=== PATIENT | female | born 1990 | race Caucasian/White ===

== ENCOUNTER 2017-10-30 15:33 | Emergency (ER) | payer MEDICAID, SELFPAY ==
[2017-10-30 15:34] VITALS: BP 146/105; PULSE 115; RESP 19; TEMP 37.1; O2SAT 97; BMI 36.4
[2017-10-30] MEDS: Ondansetron 4 MG/2 ML Vial IV (16:30)
[2017-10-30] MEDS: 0.9% Normal Saline 1,000 ML 1000 ML IV (16:30)
[2017-10-30 17:30] LABS: International Normalized Ratio 1.1; Prothrombin Time (Protime)PT. 14.1 SECONDS (11.7-14.9)
[2017-10-30 17:31] LABS: Partial Thromboplast Time 30.6 Seconds (24.1-36.2)
[2017-10-30 17:36] LABS: Anion Gap 8 (5-15); BUN 10 mg/dL (7-18); BUN/Creat Ratio 14.6 RATIO (10-20); Calcium,Total 9.1 mg/dL (8.5-10.1); Chloride 103 mmol/L (98-107); Creatinine, Serum 0.68 mg/dL (0.55-1.02); EST Glomerular Filtration Rate 109 mL/min (>60); Est Glom Filt Rate - Afr Amer 132 mL/min (>60); Glucose 92 mg/dL (74-106); Potassium 3.7 mmol/L (3.5-5.1); Sodium Level 135 mmol/L (136-145)
[2017-10-30 17:46] LABS: Absolute Lymphocyte Count 2.76 X10^3/ul (0.83-4.51); Absolute Neutrophil Count 17.7 X10^3/uL (2.0-7.7); Basophil# 0.05 X10^3/uL; Basophil% 0.2 % (0-1); Eosinophil# 0.14 X10^3/uL; Eosinophils% 0.6 % (0-5); Hematocrit 42.5 % (37-47); Hemoglobin 14.9 g/dl (12.0-15.0); Lymphocyte # 2.76 X10^3/ul (4.0); Lymphocyte % 12.1 % (19-41); Mean Corp Hgb Conc 35.1 g/gl (32-36); Mean Corpuscular Hgb 30.3 pg (27.0-32.0); Mean Corpuscular Volume 86.4 fL (81-99); Mean Platelet Vol. 8.9 fl (6.2-12.0); Monocyte# 1.95 X10^3/uL; Monocyte% 8.6 % (0-10); Neutrophil # 17.73 X10^3/uL (2.7-7.7); Neutrophil % 78.1 % (47-70); Platelet Count 339 K/mm3 (150-450); RBC Distribution Width CV 14.1 % (11.6-14.6); RBC Distribution Width SD 44.1 fl (35.1-43.9); Red Blood Count 4.92 M/mm3 (4.2-5.4); White Blood Count 22.7 K/mm3 (4.4-11.0)
[2017-10-30 17:51] LABS: Differential Indicated SCAN CRITERIA MET; POSITIVE COUNT NO; POSITIVE DIFFERENTIAL YES; POSITIVE MORPHOLOGY NO
--- NOTE | 2017-10-30 18:11 | ED.VISSUMM ---
- ER Visit Summary Date of Service: 10/30/17 Chief Complaint: Postoperative bleeding History of Present Illness: The patient is a 27 F with no local primary care physician. He is transitioning and had breast augmentation October 15 at [facility] by Dr. Sanz. He reports that he was not scheduled for a follow-up. She is in [place] and is thinking of moving back here. Does not have a date that she will be going back to [place]. Patient reports that 4 days ago she began having bleeding from the left incision. States that she was seen in outlying emergency department and they placed Gelfoam and discharged her. Begin bleeding again today she went back and they did the same treatment and this time the placed Tegaderm. She states that it continues to bleed through this. On review of systems the patient complains of nausea only. No fever, chills, rash, or other complaints. Review of systems: General: No fever, chills, cold sweats. Cardiovascular: No chest pain, palpitations. Respiratory: No cough, shortness of breath, dyspnea on exertion. Gastrointestinal: No abdominal pain, vomiting, diarrhea, melena, or hematochezia. Genitourinary: No dysuria, frequency, hematuria. Skin: No rash. Neuro: No headache, numbness, weakness. Physical Examination: Vitals: Stable. Afebrile. General: Well-nourished and well-developed. Head: Normocephalic atraumatic. Chest wall: Incision below her left breast shows dehiscence of the medial 1.5 mm with a clot in place. This is only open approximately 5 mm. The implant is not visible. There is no erythema or fluctuance surrounding this. There is contusion in approximately 6 cm surrounding hematoma. The incision on the right is healing well and has Steri-Strips in place. It is clean, dry, and intact. Neck: Supple, no lymphadenopathy. No JVD. Nontender. Cardiovascular: Regular rate and rhythm. No murmurs. Respiratory: No respiratory distress. Clear to auscultation bilaterally. Abdominal: Soft, nontender, nondistended, normal bowel sounds. No guarding, rebound, or peritoneal signs. Back: Nontender. Extremities: Nontender, no edema. Skin: Normal color, no rash. Neurologic: Alert and oriented ?3. Cranial nerves II through XII are intact. Normal strength and sensation. Psych: Normal affect. Test Results: CBC was obtained to rule out anemia and shows a hemoglobin of 14.9. However, white count is 22.7 with 78 segmented neutrophils and 12 lymphocytes. There is not an old white count for comparison. Chem-7 is marked for sodium 135. Coags are normal. Emergency Department Course and Treatment: Patient was treated Zofran IV and had a wick placed in this. ABDs and an Garcia wrap were then used. I discussed the patient his white count. He did not want IV antibiotics as he would like to go home now. He is given a dose of Cipro p.o. He is refused admission to the hospital. Treatment Plan: The patient was discussed with Dr. Valdez, prior to the return of his white count, and he has to the patient be placed on a fluoroquinolone to prevent pseudomonal infection here. Patient will be placed on Cipro and instructed to follow-up Dr. Valdez Friday at 1:45 PM for another exam. Return to the emergency department for any worsening symptoms or other concerns. Disposition: Discharged in stable condition. Impression: 1. 15 days status post breast augmentation. 2. Dehiscence of left breast augmentation incision. 3. Leukocytosis. This note was generated with [employer] dictation software. It may contain incorrect words, spelling, and punctuation that were not noted in review of the chart prior to signing ED Disposition - Plan for ED Patient: Chief Complaint: Wound Instructions: ED Wound Check Post Op Bleeding Prescriptions: Ciprofloxacin [Cipro] 500 mg PO BID #20 tablet Referrals: Shar Valdez MD [STAFF PHYSICIAN] - 11/03/17 1:45 pm
[2017-10-30 18:18] LABS: Platelet Estimate ADEQUATE (ADEQ); Red Cell Morphology NORM C+C NORMAL (NORM C&C)
--- NOTE | 2017-10-30 18:21 | ED.DCSUM_ITS ---
- ER Visit Summary Date of Service: 10/30/17 Chief Complaint: Postoperative bleeding History of Present Illness: The patient is a 27 F with no local primary care physician. He is transitioning and had breast augmentation October 15 at [facility] by Dr. Sanz. He reports that he was not scheduled for a follow- up. She is in [place] and is thinking of moving back here. Does not have a date that she will be going back to [place]. Patient reports that 4 days ago she began having bleeding from the left incision. States that she was seen in outlying emergency department and they placed Gelfoam and discharged her. Begin bleeding again today she went back and they did the same treatment and this time the placed Tegaderm. She states that it continues to bleed through this. On review of systems the patient complains of nausea only. No fever, chills, rash, or other complaints. Review of systems: General: No fever, chills, cold sweats. Cardiovascular: No chest pain, palpitations. Respiratory: No cough, shortness of breath, dyspnea on exertion. Gastrointestinal: No abdominal pain, vomiting, diarrhea, melena, or hematochezia. Genitourinary: No dysuria, frequency, hematuria. Skin: No rash. Neuro: No headache, numbness, weakness. Physical Examination: Vitals: Stable. Afebrile. General: Well-nourished and well-developed. Head: Normocephalic atraumatic. Chest wall: Incision below her left breast shows dehiscence of the medial 1.5 mm with a clot in place. This is only open approximately 5 mm. The implant is not visible. There is no erythema or fluctuance surrounding this. There is contusion in approximately 6 cm surrounding hematoma. The incision on the right is healing well and has Steri-Strips in place. It is clean, dry, and intact. Neck: Supple, no lymphadenopathy. No JVD. Nontender. Cardiovascular: Regular rate and rhythm. No murmurs. Respiratory: No respiratory distress. Clear to auscultation bilaterally. Abdominal: Soft, nontender, nondistended, normal bowel sounds. No guarding, rebound, or peritoneal signs. Back: Nontender. Extremities: Nontender, no edema. Skin: Normal color, no rash. Neurologic: Alert and oriented ?3. Cranial nerves II through XII are intact. Normal strength and sensation. Psych: Normal affect. Test Results: CBC was obtained to rule out anemia and shows a hemoglobin of 14.9. However, white count is 22.7 with 78 segmented neutrophils and 12 lymphocytes. There is not an old white count for comparison. Chem-7 is marked for sodium 135. Coags are normal. Emergency Department Course and Treatment: Patient was treated Zofran IV and had a wick placed in this. ABDs and an Garcia wrap were then used. I discussed the patient his white count. He did not want IV antibiotics as he would like to go home now. He is given a dose of Cipro p.o. He is refused admission to the hospital. Treatment Plan: The patient was discussed with Dr. Valdez, prior to the return of his white count, and he has to the patient be placed on a fluoroquinolone to prevent pseudomonal infection here. Patient will be placed on Cipro and instructed to follow-up Dr. Valdez Friday at 1:45 PM for another exam. Return to the emergency department for any worsening symptoms or other concerns. Disposition: Discharged in stable condition. Impression: 1. 15 days status post breast augmentation. 2. Dehiscence of left breast augmentation incision. 3. Leukocytosis. This note was generated with [employer] dictation software. It may contain incorrect words, spelling, and punctuation that were not noted in review of the chart prior to signing ED Disposition - Plan for ED Patient: Chief Complaint: Wound Instructions: ED Wound Check Post Op Bleeding Prescriptions: Ciprofloxacin [Cipro] 500 mg PO BID #20 tablet Referrals: Shar Valdez MD [STAFF PHYSICIAN] - 11/03/17 1:45 pm
[2017-10-30] MEDS: Ciprofloxacin 500 MG Tablet PO (18:38)
[2017-10-30 19:23] VITALS: PULSE 106; RESP 14; O2SAT 98
[2017-11-03 11:10] LABS: Pathologist Review Reviewed
== END 2017-10-30 19:25 | disposition home or self-care (01) ==
LOC: ED 16:36
PROVIDERS: Emergency Provider Emergency Medicine
DX: T81.31XA Disruption of external operation (surgical) wound, not elsewhere classified, initial encounter (principal); D72.829 Elevated white blood cell count, unspecified; Z98.82 Breast implant status; F17.290 Nicotine dependence, other tobacco product, uncomplicated
CPT/HCPCS: 36415; 80048; 85025; 85610; 85730; 96374; 96375; 99284; J7030; J2405

== ENCOUNTER → 2017-12-18 09:47 | Outpatient (CLI) | payer MEDICAID, SELFPAY ==
[2017-12-18 11:23] LABS: Amphetamine Urine VISTA NEGATIVE (<1000 ng/mL); Barbiturate Urine VISTA NEGATIVE (< 200 ng/mL); Benzodiazepine Urine VISTA NEGATIVE (< 200 ng/mL); Cocaine Urine VISTA NEGATIVE (< 300 ng/mL); Ecstacy Urine VISTA NEGATIVE (< 500 ng/mL); Methadone Urine VISTA NEGATIVE (< 300 ng/mL); PCP Urine VISTA NEGATIVE (< 25 ng/mL); THC Urine VISTA NEGATIVE (< 50 ng/mL); Vista UDS pH Range 5
== END ==
PROVIDERS: Visit Provider Anesthesiology Pain Medicine
DX: F11.20 Opioid dependence, uncomplicated (principal)
CPT/HCPCS: 80307

== ENCOUNTER 2018-06-18 13:53 | Emergency (ER) | payer SELFPAY ==
[2018-06-18 13:54] VITALS: BP 119/70; PULSE 83; RESP 16; TEMP 36.8; O2SAT 99; BMI 37.8
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
[2018-06-18] MEDS: DiphenhydrAMINE 25 MG Capsule 50 MG PO (14:39)
[2018-06-18] MEDS: Ondansetron 4 MG/2 ML Vial IM (14:39)
[2018-06-18] MEDS: Ketorolac 60 MG/2 ML Vial IM (14:39)
--- NOTE | 2018-06-18 14:46 | ED.RN ---
PT REQUEST TO NOT HAVE CT OF HEAD. REPORTS HAS MRI SCHEDULED. DR LEIGH NOTIFIED.
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
[2018-06-18 15:39] VITALS: BP 154/95; PULSE 78; RESP 16; O2SAT 98
== END 2018-06-18 15:41 | disposition home or self-care (01) ==
PROVIDERS: Emergency Provider Emergency Medicine; Family Provider Family Medicine; PCP Family Medicine
DX: G43.909 Migraine, unspecified, not intractable, without status migrainosus (principal); Z72.0 Tobacco use
CPT/HCPCS: 96372; 99283; J2405

== ENCOUNTER 2019-07-10 08:47 | Emergency (ER) | payer MEDICAID, SELFPAY ==
[2019-07-10 08:48] VITALS: BP 140/91; PULSE 109; RESP 16; TEMP 38.2; O2SAT 98; BMI 43.2
--- NOTE | 2019-07-10 09:08 | EKG12_ITS ---
Test Reason : GEN ILLNESS Blood Pressure : / mmHG Vent. Rate : 108 BPM Atrial Rate : 108 BPM P-R Int : 122 ms QRS Dur : 080 ms QT Int : 324 ms P-R-T Axes : 046 029 041 degrees QTc Int : 434 ms Sinus tachycardia Otherwise normal ECG Confirmed by JOHNATHAN MERINO, JUNIOR ([id number]), field map editor MICHELE CAIN ([id number]) on 07/13/2019 10:00:17 AM Referred By: NICHOLAS Confirmed By:JUNIOR MANN MD
--- NOTE | 2019-07-10 09:10 | RAD_ITS ---
STUDY: X-RAY CHEST REASON FOR EXAM: Female, 29 years old. Chest pain TECHNIQUE: Frontal view of the chest COMPARISON: None. FINDINGS: The lungs are clear. There are no pleural effusions. There is no pneumothorax. The heart is normal in size. The visualized osseous structures are within normal limits. RAD/Chest 1 View (Portable) IMPRESSION: No acute thoracic pathology. Electronically Signed: Alejandro Woodall, at 9:39 EST Tel , Service support ,
--- NOTE | 2019-07-10 09:33 | ED.DCSUM_ITS ---
- ER Visit Summary Date of Service: 07/10/19 Chief Complaint: Sick History of Present Illness: The patient is a 29 F who has been sick for the past 4 days. She reports diarrhea, fevers, chills, dizziness, sore throat, nausea, headache, and body aches. She presents today because she is feeling worse and having some right-sided chest pain. She has a history of migraines, transitioning male to female, and currently on estradiol among her other medications. Physical Examination: Temperature 100.7 and heart rate 109, otherwise vitals unremarkable. Patient is sitting in a dark room with a washcloth over her eyes. HEENT exam grossly unremarkable. Heart tachycardic but regular. Lungs diminished in all leo. Abdomen soft and nontender. Extremities nontender with no edema. Skin normal in color. Test Results: EKG shows sinus rhythm at a rate of 108. No sign of ischemia or infarction pattern. Laboratory studies and influenza testing are pending. Chest x-ray pending. Emergency Department Course and Treatment: This sounds like a viral illness, but the patient is slightly tachycardic and having right-sided chest pain. She is on hormones. We will check basic labs, influenza testing, troponin, d-dimer, EKG, and chest x-ray. Patient was treated with fluids, Tylenol, and DHE while awaiting results. White count 24.3, stable. Chemistry panel unremarkable. D-dimer normal. Troponin normal. Patient refused influenza testing. EKG showed sinus rhythm at a rate of 108. Chest x-ray showed nothing acute. On reevaluation, patient was feeling better after treatment. She requested a muscle relaxer and will be treated with Norflex prior to discharge. Stay hydrated. Use [id number] remedies for symptom control. Follow-up with primary care. All encounters were chaperoned by nursing, either Sandrine or Jeannette. Treatment Plan: As above Disposition: Discharge Impression: 1. Viral illness This note was generated with [employer] software. It may contain incorrect words, spelling, and punctuation that were not noted in review of the chart prior to signing ED Disposition - Plan for ED Patient: Referrals: Gerardo Hendrix MD [Primary Care Provider] -
[2019-07-10 09:45] LABS: Absolute Lymphocyte Count 2.57 X10^3/uL (0.83-4.51); Absolute Neutrophil Count 19.6 X10^3/uL (2.0-7.7); Basophil# 0.08 X10^3/uL; Basophil% 0.3 % (0-1); Eosinophil# 0.03 X10^3/uL; Eosinophils% 0.1 % (0-5); Hematocrit 43.6 % (37-47); Hemoglobin 15.2 g/dL (12.0-15.0); Lymphocyte # 2.57 X10^3/ul (4.0); Lymphocyte % 10.6 % (19-41); Mean Corp Hgb Conc 34.9 g/dL (32-36); Mean Corpuscular Hgb 29.2 pg (27.0-32.0); Mean Corpuscular Volume 83.8 fL (81-99); Mean Platelet Vol. 8.7 fl (6.2-12.0); Monocyte# 1.89 X10^3/uL; Monocyte% 7.8 % (0-10); NRBC Flagged by Analyzer 0 % (0-5); Neutrophil # 19.58 X10^3/uL (2.7-7.7); Neutrophil % 80.5 % (47-70); POSITIVE DIFFERENTIAL YES; Platelet Count 322 K/mm3 (150-450); RBC Distribution Width CV 12.5 % (11.6-14.6); RBC Distribution Width SD 37.9 fl (35.1-43.9); White Blood Count 24.3 K/mm3 (4.4-11.0)
[2019-07-10 09:46] LABS: Differential Indicated SCAN CRITERIA MET
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
[2019-07-10 09:58] LABS: D-Dimer Quantitative (DVT/PE) < 0.27 FEU/ug/m (0.27-0.49)
[2019-07-10 10:02] LABS: Anion Gap 7 (5-15); BUN 14 mg/dL (7-18); BUN/Creat Ratio 16.1 RATIO (10-20); Calcium,Total 9.2 mg/dL (8.5-10.1); Chloride 104 mmol/L (98-107); Creatinine, Serum 0.87 mg/dL (0.55-1.02); EST Glomerular Filtration Rate 82 mL/min (>60); Est Glom Filt Rate - Afr Amer 99 mL/min (>60); Estimated Creatinine Clearance 106.64 ml/min; Glucose 104 mg/dL (74-106); Potassium 3.8 mmol/L (3.5-5.1); Sodium Level 136 mmol/L (136-145)
[2019-07-10] MEDS: Acetaminophen 500 MG Tablet 1000 MG PO (10:08)
[2019-07-10 10:14] VITALS: O2SAT 98
[2019-07-10] MEDS: Ondansetron ODT 4 MG Tablet PO (10:18)
[2019-07-10] MEDS: Dihydroergotamine 1 MG/ML Ampul IM (10:18)
--- NOTE | 2019-07-10 10:35 | ED.DEP ---
ED Disposition - Plan for ED Patient: Instructions: FEBRILE ILLNESS, Uncertain Cause (Adult) Referrals: Gerardo Hendrix MD [Primary Care Provider] -
[2019-07-10 10:47] VITALS: BP 131/74; PULSE 99; RESP 16; O2SAT 100
[2019-07-10] MEDS: Orphenadrine 60 MG/2 ML Ampul IM (10:47)
[2019-07-10 10:56] VITALS: BP 131/74; PULSE 99; RESP 17; O2SAT 100
--- NOTE | 2019-07-10 10:58 | ED.RN ---
REVIEWED D/C INSTRUCTIONS, FOLLOW UP CARE, AND S/S THAT WOULD WARRANT A RETURN TO THE ED WITH PT. PT VERBALIZED AN UNDERSTANDING AND DENIES FURTHER QUESTIONS FOR THIS RN. PT SKIN P/W/D, RESP EVEN AND UNLABORED, PT A&O X 3, NO DISTRESS NOTED. PT AMBULATED OUT OF ED, GAIT STEADY.
[2019-07-12 14:12] LABS: Pathologist Review Reviewed
== END 2019-07-10 10:59 | disposition home or self-care (01) ==
LOC: ED 09:43
PROVIDERS: Emergency Provider Emergency Medicine; Family Provider Family Medicine; PCP Family Medicine
DX: B34.9 Viral infection, unspecified (principal); R07.89 Other chest pain
CPT/HCPCS: 71045; 80048; 84484; 85025; 85379; 93005; 96372; 99285; J7030; A4216; J1110